=== PATIENT | male | born 1955 | race Two or more races ===

== ENCOUNTER 2024-02-28 09:18 | Inpatient (IN) | payer MEDICARE, MEDICAID ==
[~2024-02-28] VITALS: Ht 193 cm; Wt 68.7 kg
--- NOTE | 2024-02-28 10:30 | ED.PDOC ---
HPI Comments 68y M who presents to the ED via EMS for chief complaint of palpitations. Pt states he has been having palpitations since this AM. Pt has associated dizzziness and states it did not go away and he called EMS to the scene. Pt otherwise denies chest pain, shortness of breath, headache, fever, cough, chills, nausea or vomiting. Pt states he is daily smoker and endorses marijuana use. Pt denies any sick contacts. Pt is poor historian and has unknown medical history. Pt in the ED, has stable vitals in the ED. Chief Complaint: Palpitations Time Seen by MD: :27 Reviewed Notes: Arc Cutter Plasma Arc Notes Allergies: Coded Allergies: NO KNOWN ALLERGIES (Unverified , 02/28/24) Information Source: Patient Mode of Arrival: EMS Brought in by: EMS Past Medical History PAST MEDICAL HISTORY: Unknown Surgical History: Unknown Family History Family History: Unknown Social History Smoker: Cigarettes Alcohol: Denies ETOH Use Drugs: Marijuana Lives In: Home Constitutional: denies: chills, diaphoresis, fatigue, fever, malaise, sweats, weakness, others EENTM: denies: blurred vision, double vision, ear bleeding, ear discharge, ear drainage, ear pain, ear ringing, eye pain, eye redness, hearing loss, mouth pain, mouth swelling, nasal discharge, nose bleeding, nose congestion, nose pain, photophobia, tearing, throat pain, throat swelling, voice changes, others Respiratory: denies: cough, hemoptysis, orthopnea, SOB at rest, shortness of breath, SOB with excertion, stridor, wheezing, others Cardiovascular: reports: palpitations; denies: chest pain, dizzy spells, diaphoresis, Dyspnea on exertion, edema, irregular heart beat, left arm pain, lightheadedness, PND, syncope, others Gastrointestinal: denies: abdomen distended, abdominal pain, blood streaked bowels, constipated, diarrhea, dysphagia, difficulty swallowing, hematemesis, melena, nausea, poor appetite, poor fluid intake, rectal bleeding, rectal pain, vomiting, others Genitourinary: denies: burning, dysuria, flank pain, frequency, hematuria, incontinence, penile discharge, penile sore, pain, testicle pain, testicle swelling, urgency, others Neurological: reports: dizziness; denies: fainting, headache, left sided numbness, left sided weakness, numbness, paresthesia, pre-existing deficit, right sided numbness, right sided weakness, seizure, speech problems, tingling, tremors, weakness, others Musculoskeletal: denies: back pain, gout, joint pain, joint swelling, muscle pain, muscle stiffness, neck pain, others Integumetry: denies: bruises, change in color, change in hair/nails, dryness, laceration, lesions, lumps, rash, wounds, others Allergic/Immunocompromised: denies: Difficulty Healing, Frequent Infections, Hives, Itching, others Hematologic/Lymphatic: denies: anemia, blood clots, easy bleeding, easy bruising, swollen glands, others Endocrine: denies: excessive hunger, excessive sweating, excessive thirst, excessive urination, flushing, intolerance to cold, intolerance to heat, unexplained weight gain, unexplained weight loss, others Psychiatric: denies: anxiety, bipolar disorder, depression, hopeless, panic disorder, schizophrenia, sleepless, suicidal, others All Other Systems: Reviewed and Negative Physical Exam General Appearance: No Apparent Distress, Normal HEENT: Normal ENT Inspection, Pharynx Normal, TMs Normal Neck: Full Range of Motion, Non-Tender, Normal, Normal Inspection Respiratory: Other (lungs clear) Cardiovascular: Other (normal exam, ) Breast Exam: Deferred Gastrointestinal: No Organomegaly, Non Tender, No Pulsatile Mass, Normal Bowel Sounds, Soft Genitalia: Deferred Pelvic: Deferred Rectal: Deferred Extremities: No calf tenderness, Normal capillary refill, Normal inspection, Normal range of motion, Non-tender, No pedal edema Musculoskeletal : Apperance: Normal Neurologic: Alert, green building engineer II-XII nml as Tested, No Motor Deficits, Normal Affect, Normal Mood, No Sensory Deficits Cerebellar Function: Normal Reflexes: Normal Skin: Dry, Normal Color, Warm Lymphatic: No Adenopathy Was a procedure done? Was a procedure done?: No CP Differential Dx Differential Diagnosis: A-fib, A-Flutter, Angina, Anxiety / Panic Attack, Atrial Dysrhythmia, AV Block 1st Degree, AV Block 2nd Degree, AV Block 3rd Degree, Electrolyte Disorder, Heart Failure, Hyperthyroidism, Hyperventilation, Hypoxia, MAT, NC, PAC's, PSVT, PVC's, Sinus Tachycardia, Torsades De Pointes, Ventricular Dysrhythmia, V-Fib, V-Tach, WPW Differential Diagnosis: HTN Essential, HTN Accelerated Differential Diagnosis: Chest Wall Pain, Costochondritis X-Ray, Labs, Meds, VS Vital Signs Date Time Temp Pulse Resp B/P (MAP) Pulse Ox O2 Delivery O2 Flow Rate FiO2 02/28/24 14:19 63 19 118/54 (75) 95 02/28/24 14:19 63 19 95 Room Air 02/28/24 12:08 98.6 64 16 96/45 (62) 96 98.6 02/28/24 12:08 64 16 96 Room Air 02/28/24 09:18 75 02/28/24 09:18 98.0 80 24 100/65 (77) 100 Lab Test 02/28/24 13:42 02/28/24 12:40 Range/Units Troponin I High Sensitivity 46 48 </=54 ng/L White Blood Count 7.1 4.4-10.8 10^3/uL Red Blood Count 4.35 L 4.5-5.90 10^6/uL Hemoglobin 13.9 13.5-17.5 g/dL Hematocrit 40.8 L 41.0-53.0 % Mean Corpuscular Volume 93.7 80.0-100.0 fL Mean Corpuscular Hemoglobin 32.0 28.0-32.0 pg Mean Corpuscular Hemoglobin Concent 34.1 32.0-36.0 g/dL Red Cell Distribution Width 13.4 11.8-14.3 % Platelet Count 134 L 140-450 10^3/uL Mean Platelet Volume 7.4 6.9-10.8 fL Neutrophils (%) (Auto) 79.2 37.0-80.0 % Lymphocytes (%) (Auto) 11.7 10.0-50.0 % Monocytes (%) (Auto) 9.0 0.0-12.0 % Eosinophils (%) (Auto) 0.0 0.0-7.0 % Basophils (%) (Auto) 0.1 0.0-2.0 % Neutrophils # (Auto) 5.6 1.6-8.6 10 ^3/uL Lymphocytes # (Auto) 0.8 0.4-5.4 10 ^3/uL Monocytes # (Auto) 0.6 0-1.3 10 ^3/uL Eosinophils # (Auto) 0 0-0.8 10 ^3/uL Basophils # (Auto) 0 0-0.2 10 ^3/uL Nucleated Red Blood Cells 0.1 % Sodium Level 138 136-145 mmol/L Potassium Level 3.1 L 3.5-5.1 mmol/L Chloride Level 103 98-107 mmol/L Carbon Dioxide Level 27 20-31 mmol/L Anion Gap 8 5-15 Blood Urea Nitrogen 16 9-23 mg/dL Creatinine 0.93 0.700-1.30 mg/dL Glomerular Filtration Rate Calc 89 >90 mL/min BUN/Creatinine Ratio 17.2 10.0-20.0 Serum Glucose 91 74-106 mg/dL Calcium Level 9.5 8.7-10.4 mg/dL Current Medications Medications (Trade) Dose Ordered Sig/Jaswant Route Start Time Stop Time Status Last Admin Sodium Chloride 1,000 ml @ 250 mls/hr Q4H ONCE IV 02/28/24 12:15 02/28/24 16:14 02/28/24 12:32 Time of 1ST Reevaluation: 11:00 Reevaluation 1ST: Unchanged Time of 2ND Reevaluation: 15:29 Reevaluation 2ND: Improved Patient Education/Counseling: Diagnosis, Treatment, Prognosis, Need For Follow Up Family Education/Counseling: No Family Present Additional Information - I reviewed the following notes from patient's past medical encounters: - The following tests were ordered, and results were reviewed by me: (Labs, X- Ray, EKG): EKG x 3 - Additional information was gathered from interviewing the following inde pendent Historian: (Other Providers, EMT): - I reviewed and agreed with the following test results read by other provider: (X-ray, CT, US): - I discussed treatments and results with medical personnel pt has not had palpitations, but his BP did transiently drop, and responded to small fluid bolus. he will need admission for further monitoring and workups Departure 1 Departure Time of Disposition: 15:30 Impression: Primary Impression: Palpitations Additional Impression: Transient hypotension Disposition: ADMITTED INPATIENT Admit to: Tele Condition: Stable Discharged With: Self Critical Care Note Critical Care Time?: Yes (55 min-critical care time only) Critical care comment: due to concerns for patient's condition deterioration, the care required my highest attention and readiness to intervene. i spoke to the family, patient, reviewed any records, ordered the appropriate tests and treatments, reviewed the results, response and communicated with medical personnel, formulated a plan of care. critical care time does not include any procedures Stability Stability form required: No Heart Score Heart Score: Heart Score Response (Comments) Value History Slightly Suspicious 0 EKG Repolarization Disturb 1 Age >65 2 Risk Factors No known risk factors 0 Troponin Normal limit 0 Total 3 I personally scribed for DANILO MEDINA MD ([email or web address]) on 02/28/24 at 10:30. Electronically submitted by Hermilo Harmon ([email or web address]). DANILO MEDINA MD Feb 28, 2024 10:30
[2024-02-28] MEDS: SODIUM CHLORIDE 0.9% 1,000 ML IV ONE (12:32)
--- NOTE | 2024-02-28 12:47 | DVH ---
EXAM: XY CHEST PORTABLE Indication: palpitations Technique: Single frontal view of the chest was obtained Comparison: None FINDINGS: Lines and Tubes: None Lungs: No focal consolidation. Pleura: No effusion. No pneumothorax. Cardiomediastinal contours: Unremarkable Bones: No acute osseous abnormality. IMPRESSION: No acute cardiopulmonary disease.
[2024-02-28 13:23] LABS: Basophils # (auto) 0 10 ^3/uL (0-0.2); Basophils % (auto) 0.1 % (0.0-2.0); Eosinophils # (auto) 0 10 ^3/uL (0-0.8); Hematocrit 40.8 % (41.0-53.0); Hemoglobin 13.9 g/dL (13.5-17.5); Lymphocytes # (auto) 0.8 10 ^3/uL (0.4-5.4); Lymphocytes % (auto) 11.7 % (10.0-50.0); Mean Corpuscular Hgb Conc. 34.1 g/dL (32.0-36.0); Mean Corpuscular Volume 93.7 fL (80.0-100.0); Monocytes # (auto) 0.6 10 ^3/uL (0-1.3); Neutrophils # (auto) 5.6 10 ^3/uL (1.6-8.6); Neutrophils % (auto) 79.2 % (37.0-80.0); Nucleated Red Blood Cells % 0.1 %; Platelet Count (auto) 134 10^3/uL (140-450); Red Blood Cells 4.35 10^6/uL (4.5-5.90); Red Cell Distribution Width 13.4 % (11.8-14.3); White Blood Cell 7.1 10^3/uL (4.4-10.8)
[2024-02-28 13:56] LABS: Chloride 103 mmol/L (98-107); Sodium 138 mmol/L (136-145)
[2024-02-28 13:57] LABS: Anion Gap 8 (5-15); Carbon Dioxide 27 mmol/L (20-31)
[2024-02-28 13:58] LABS: Calcium 9.5 mg/dL (8.7-10.4)
[2024-02-28 14:02] LABS: BUN/Creatinine Ratio 17.2 (10.0-20.0); Blood Urea Nitrogen 16 mg/dL (9-23); Glucose 91 mg/dL (74-106)
[2024-02-28 14:05] LABS: Potassium 3.1 mmol/L (3.5-5.1)
[2024-02-28] MEDS: POTASSIUM CHL 20 Meq TABLET PO ONE (16:14)
[2024-02-28] MEDS ORDERED: MORPHINE SULFATE INJ 2 MG/ml SYRG IV PRN (16:15)
[2024-02-28] MEDS ORDERED: NITROGLYCERIN 0.4 MG SL TAB SL PRN (16:15)
[2024-02-28 16:51] LABS: Urine Bacteria None Seen /hpf (None Seen)
[2024-02-28 17:09] LABS: Urine Blood TRACE /uL (Negative); Urine Clarity Turbid (Clear); Urine Color Yellow (Yellow); Urine Mucus MODERATE (None Seen); Urine Protein, UAD 1+ (Negative); Urine Specific Gravity 1.031 (1.001-1.035); Urine Squamous Epithelial Cell FEW /hpf (<5); Urine Urobilinogen 8 mg/dL (Negative); Urine WBC 7 /hpf (0 - 3)
[2024-02-28 17:14] LABS: Amphetamine Screen, Urine Neg (NEGATIVE); Barbiturate Scree,Urine Neg (NEGATIVE); Benzodiazephine Screen, Urine Neg (NEGATIVE); Cannabinoid Screen, Urine Pos (NEGATIVE); Cocaine Screen, Urine Neg (NEGATIVE); Opiate Scree,Urine Neg (NEGATIVE); Phencyclidine Screen, Urine Neg (NEGATIVE)
[2024-02-28 17:33] LABS: Alanine Aminotransferase 23 U/L (7-40); Alkaline Phosphatase 69 U/L (46-116); Anion Gap 6 (5-15); Aspartate Aminotransferase 23 U/L (13-40); BUN/Creatinine Ratio 16.5 (10.0-20.0); Bilirubin, Total 0.9 mg/dL (0.2-1.0); Blood Urea Nitrogen 16 mg/dL (9-23); Calcium 9.3 mg/dL (8.7-10.4); Carbon Dioxide 27 mmol/L (20-31); Chloride 106 mmol/L (98-107); Sodium 139 mmol/L (136-145); Total Protein 6.4 g/dL (5.7-8.2)
[2024-02-28] MEDS ORDERED: TAMS0.4C39 PO (17:45)
[2024-02-28] MEDS ORDERED: ATOR20TA50 PO (17:45)
[2024-02-28] MEDS ORDERED: GABA-1250 PO (17:45)
[2024-02-28] MEDS ORDERED: DULO1CAP5 PO (17:45)
[2024-02-28] MEDS ORDERED: PANT40T (17:45)
[2024-02-28] MEDS ORDERED: ASPI-325 PO (17:45)
[2024-02-28] MEDS ORDERED: ERGO1CAP12 PO (17:45)
[2024-02-28] MEDS ORDERED: ERGOCALCIFEROL 50,000 UNIT(1.25MG) CAP PO SCH (18:00)
--- NOTE | 2024-02-28 18:00 | DVHHPRES ---
History of Present Illness Resident Creating Document: YAMILA GIRON RESIDENT History of Present Illness Mr. Reynoso, 68-year-old male presented to the ED via EMS with a chief complaint of palpitations that began this morning, accompanied by dizziness. He denies chest pain, shortness of breath, headache, fever, cough, chills, nausea, or vomiting. He is a daily smoker and uses marijuana. He denies any sick contacts and has an unknown medical history. In the ED, his vitals are stable. He has no known allergies, and the information was provided by the patient himself. Cardiovascular: HTN GI: GERD Past Surgical History: None Family History non-contributory Smoke: 1 pack per day ALCOHOL: occassional Drugs: Marijuana Lives: with Family Domestic Violence: Neg Review of Systems Constitutional: No: Fever, Chills, Sweats, Weakness, Malaise, Other Eyes: No: Pain, Vision change, Conjunctivae inflammation, Eyelid inflammation, Other, Redness ENT: No: Ear pain, Ear discharge, Nose pain, Nose discharge, Nose congestion, Mouth pain, Mouth swelling, Throat pain, Throat swelling, Other Respiratory: No: Cough, Dry, Shortness of breath, SOB with excertion, Wheezing, Hemoptysis, Pleuritic Pain, Sputum, Wheezing, Other Cardiovascular: Palpitations, Lt Headedness; No: Chest Pain, Orthopnea, Paroxysmal Noc. Dyspnea, Edema, Other Gastrointestinal: No: Nausea, Vomiting, Abdominal Pain, Diarrhea, Constipation, Melena, Hematochezia, Other Genitourinary: No Dysuria, No Frequency, No Incontinence, No Hematuria, No Retention, No Other Musculoskeletal: No: other, neck pain, shoulder pain, arm pain, back pain, hand pain, leg pain, foot pain Skin: No: Rash, Lesions, Jaundice, Bruising, Other Neurological: No: Weakness, Numbness, Incoordination, Change in speech, Confusion, Seizures, Other Allergies: Coded Allergies: NO KNOWN ALLERGIES (Unverified , 02/28/24) Medications Current Medications Medications Dose Ordered Sig/Jaswant Route Start Time Stop Time Status Last Admin Dose Admin Nitroglycerin 0.4 mg Q5MINP PRN SL 02/28/24 16:15 Morphine Sulfate 2 mg Q30M PRN IV 02/28/24 16:15 Lactated Ringer's 1,000 ml @ 50 mls/hr Q20H IV 02/28/24 17:45 UNV Aspirin 81 mg DAILY PO 02/29/24 10:00 UNV Atorvastatin Calcium 20 mg DAILY PO 02/29/24 10:00 UNV Duloxetine HCl 300 mg DAILY PO 02/29/24 10:00 UNV Ergocalciferol 50,000 unit QWEEKLY PO 02/28/24 18:00 UNV Gabapentin 300 mg DAILY PO 02/29/24 14:00 UNV Pantoprazole Sodium 40 mg DAILY PO 02/29/24 10:00 UNV Tamsulosin HCl 0.4 mg DAILY PO 02/29/24 10:00 UNV Exam Vital Signs Vital Signs Date Time Temp Pulse Resp B/P (MAP) Pulse Ox O2 Delivery O2 Flow Rate FiO2 02/28/24 16:06 98.0 66 20 107/63 (78) 99 98.0 02/28/24 14:19 Room Air General Appearance: Alert, Oriented X3, Cooperative, No acute distress HEENT: Atraumatic, PERRLA, EOMI, Mucous membr. moist/pink Respiratory: Clear to auscultation, Normal air movement Cardiovascular: Regular rate, Normal S1, Normal S2, No murmurs Abdominal: Normal bowel sounds, Soft, No tenderness, No hepatospenomegaly Extremities: No clubbing, No cyanosis, No edema, Normal pulses, No tenderness/swelling Skin: No rashes, No breakdown, No significant lesion Neuro: Normal gait, Normal speech, Strength at 5/5 X4 ext, Normal tone, Sensation intact, Cranial nerves 3-12 NL, Reflexes 2+ Psych/Mental Status: Mental status NL, Mood NL Labs/Xrays Labs Test 02/28/24 16:27 02/28/24 15:38 02/28/24 12:40 Range/Units Urine Color Yellow Yellow Urine Clarity Turbid H Clear Urine pH 6.0 5.0-9.0 Urine Specific [place] 1.031 1.001-1.035 Urine Protein 1+ H Negative Urine Ketones 1+ H Negative Urine Blood Trace H Negative /uL Urine Nitrite Negative Negative Urine Bilirubin 1+ Negative Urine Urobilinogen 8 H Negative mg/dL Urine Leukocyte Esterase Negative Negative /uL Urine RBC 15 0 - 3 /hpf Urine WBC 7 0 - 3 /hpf Urine Squamous Epithelial Cells Few <5 /hpf Urine Bacteria None seen None Seen /hpf Urine Mucus Moderate None Seen Urine Glucose Trace Normal mg/dL Urine Opiates Screen Neg NEGATIVE Urine Fentanyl Screen Neg NEGATIVE Urine Barbiturates Screen Neg NEGATIVE Urine Phencyclidine Screen Neg NEGATIVE Urine Amphetamines Screen Neg NEGATIVE Urine Benzodiazepines Screen Neg NEGATIVE Urine Cocaine Screen Neg NEGATIVE Urine Cannabinoids Screen Pos NEGATIVE Troponin I High Sensitivity 47 </=54 ng/L White Blood Count 7.1 4.4-10.8 10^3/uL Red Blood Count 4.35 L 4.5-5.90 10^6/uL Hemoglobin 13.9 13.5-17.5 g/dL Hematocrit 40.8 L 41.0-53.0 % Mean Corpuscular Volume 93.7 80.0-100.0 fL Mean Corpuscular Hemoglobin 32.0 28.0-32.0 pg Mean Corpuscular Hemoglobin Concent 34.1 32.0-36.0 g/dL Red Cell Distribution Width 13.4 11.8-14.3 % Platelet Count 134 L 140-450 10^3/uL Mean Platelet Volume 7.4 6.9-10.8 fL Neutrophils (%) (Auto) 79.2 37.0-80.0 % Lymphocytes (%) (Auto) 11.7 10.0-50.0 % Monocytes (%) (Auto) 9.0 0.0-12.0 % Eosinophils (%) (Auto) 0.0 0.0-7.0 % Basophils (%) (Auto) 0.1 0.0-2.0 % Neutrophils # (Auto) 5.6 1.6-8.6 10 ^3/uL Lymphocytes # (Auto) 0.8 0.4-5.4 10 ^3/uL Monocytes # (Auto) 0.6 0-1.3 10 ^3/uL Eosinophils # (Auto) 0 0-0.8 10 ^3/uL Basophils # (Auto) 0 0-0.2 10 ^3/uL Nucleated Red Blood Cells 0.1 % [address] [address] Ph: [phone] DIAGNOSTIC IMAGING Diagnostic Imaging Report : [id number] Signed PATIENT: TRISTIAN REYNOSO ACCT: [id number] UNIT: [id number] : 1955 LOC: ER ROOM / BED: / AGE / SEX: 68 / M ADM STATUS: REG ER SERVICE 18 ORDERING PHYSICIAN: DANILO MEDINA MD PROCEDURE(s): CXRP - CHEST PORTABLE REASON: palpitations ORDER NUMBER(s): [id number], ACCESSION NUMBER(s): [id number] EXAM: XY CHEST PORTABLE Indication: palpitations Technique: Single frontal view of the chest was obtained Comparison: None FINDINGS: Lines and Tubes: None Lungs: No focal consolidation. Pleura: No effusion. No pneumothorax. Cardiomediastinal contours: Unremarkable Bones: No acute osseous abnormality. IMPRESSION: No acute cardiopulmonary disease. ATED BY: VENUS BUITRAGO MD DICTATED DATE/TIME: 02/28/241245 SIGNED BY: VENUS BUITRAGO MD SIGNED DATE/TIME: 02/28/241245 CC: Assessment/Plan Assessment/Plan Assessment: 68-year-old gentleman with a past medical history significant for essential hypertension, GERD, benign prostatic hyperplasia, dyslipidemia, CAD risk, vitamin D deficiency, back pain, and osteoarthritis. Noticed sustained palpitation this morning, associated with dizziness and recovered without further intervention. Otherwise, the patient denies chest pain, shortness of breath, headache, fever, cough, chills, nausea, vomiting, or other systemic symptoms. The patient came to the ED with EMS for further evaluations. Plan: #Palpitations, rule out arrythmia: Isolated episodes, brought differentials including structural heart disease, rhythm disorder, autonomic dysfunction, medication side effect, dehydration among others. Pending extensive lab work, TTE/echo, keep the patient on telemetry overnight. If any reasonable cause noted, we will treat. Otherwise, we will advise outpatient follow-up closely with Cardiology and event monitoring to catch the culprit rhythm. #ACS to rule out: EKG, trops. #Unstable/stable angina to rule out #Chronic marijuana abuse: UDS positive for cannabinoids, counseling done for adverse effects of chronic marijuana abuse. #Essential hypertension: Blood pressure goal 140/90 or below as per AHA/ACC guidelines for nondiabetic adults. #Hypokalemia: Mild 3.1 status post replenishment, check tomorrow. #Benign prostatic hyperplasia: Tamsulosin 0.4 to continue. #GERD: Continue pantoprazole 20 mg daily oral. #Dyslipidemia: Continue atorvastatin 20mg daily #Previous history of UTI: Previously on nitrofurantoin, even for urinalysis unremarkable, patient is free of any urinary symptoms. #Prior history of CAD: Aspirin 81, and atorvastatin to continue. #Vitamin D deficiency: Continue vitamin D supplements. #Back pain: Duloxetine 30 mg capsule daily, gabapentin 300 a.m., 300 lines, 600 p.m. #Mild thrombocytopenia 134: Avoid aspirin, avoid Lovenox. Trend. SCDs #Transient hypokalemia: Likely due to dehydration, check for orthostatic hypotension, continue IV fluid, continue diet and further treatment. #Likely costochondritis: Mild chest wall tenderness: as needed Tylenol. #Active smoker: Smoking cessation counseling done for 11 minutes. #PUD prophylaxis: Protonix, home dose to continue. DVT prophylaxis:SCD/brisk movement. Barriers to discharge: Medical diagnosis and management in progress. PCP: Cordelia Carrillo. Specialist relevant to admission: Cardiology outpatient follow-up if the patient has persistent symptoms for event monitoring device. Case discussed with Dr. Veloz. Code Status: Full Code. Discussion needed total 29 minutes bedside. The patient remains on the telemetry floor. Plan discussed with: Patient, Other (RN, Primary Team. ) My Orders Orders - YAMILA GIRON RESIDENT Procedure Category Date Status Time Admit ADMIT 02/28/24 Transmitted 16:04 Nitroglycerin PHA 02/28/24 In Process Sublingual (Ntrostat 16:15 Morphine Sulfate PHA 02/28/24 In Process Injection 16:15 Oxygen By Nasal RT 02/28/24 Transmitted Cannula 16:04 Stat Ekg For Chest [facility] 02/28/24 In Process Pain 16:04 Notify Md Of Changes [facility] 02/28/24 In Process From Base 16:04 Advice Line Rn For [facility] 02/28/24 In Process 24 Hours 16:04 Emergency Dysrhythmia [facility] 02/28/24 In Process Protocol 16:04 Rhythm Strips Once [facility] 02/28/24 In Process Every Shift 16:04 Thyroid Stimulating LAB 02/28/24 In Process Hormone 16:05 D-Dimer LAB 02/28/24 In Process 16:05 Electrocardigram EKG 02/28/24 Logged 16:05 Comprehensive LAB 02/28/24 In Process Metabolic Panel 16:05 Comprehensive LAB 02/29/24 Verified Metabolic Panel 04:00 Complete Blood Count LAB 02/29/24 Verified 04:00 Echo 2d Mode Cardiac US 02/28/24 Logged DOP 16:05 Orthostatic Vital ORDERS 02/28/24 Transmitted Signs 17:22 Lactated Ringer's PHA 02/28/24 Logged 17:45 Aspirin Enteric PHA 02/29/24 Logged Coated Tablet 10:00 Atorvastatin (Lipitor) PHA 02/29/24 Logged 10:00 Duloxetine Hcl PHA 02/29/24 Logged Capsule (Cymbalta 10:00 Ergocalciferol PHA 02/28/24 Logged (Vitamin D 50,000 18:00 Gabapentin Capsule PHA 02/29/24 Logged (Neurontin Capsule) 14:00 Pantoprazole Tablet PHA 02/29/24 Logged (Protonix Tablet) 10:00 Tamsulosin PHA 02/29/24 Logged Hydrochloride (Flomax) 10:00 Date of Service: Feb 28, 2024 Billing Provider: TANO DE MD Common Visit Codes: [id number] INP/OBS CARE (HIGH) Secondary Visit Codes: [id number] CHNG SMOKING >10MIN YAMILA GIRON RESIDENT Feb 28, 2024 18:00 TANO DE MD Feb 29, 2024 09:07
[2024-02-28 18:07] LABS: Glucose 146 mg/dL (74-106)
--- NOTE | 2024-02-28 18:47 | DVH ---
Bilateral lower extremity venous duplex Clinical History: Palpitations. Comparison: None Technique: Duplex Doppler evaluation of the deep venous systems of both lower extremities from the common femora l veins to the popliteal veins including color Doppler and spectral/pulsed waveform analysis was perf ormed. Findings: RIGHT SIDE: The common femoral vein demonstrates appropriate compressibility and waveform variability. There is compressibility/patency of the great saphenous vein at the proximal thigh. The femoral vein demonstrates appropriate compressibility and waveform variability. The deep femoral vein demonstrates appropriate compressibility and waveform variability. The popliteal vein demonstrates appropriate compressibility and waveform variability. There is normal compressibility at the tibioperoneal trunk. LEFT SIDE: The common femoral vein demonstrates appropriate compressibility and waveform variability. There is compressibility/patency of the great saphenous vein at the proximal thigh. The femoral vein demonstrates appropriate compressibility and waveform variability. The deep femoral vein demonstrates appropriate compressibility and waveform variability. The popliteal vein demonstrates appropriate compressibility and waveform variability. There is normal compressibility at the tibioperoneal trunk. Impression: 1. No right or left femoropopliteal venous thrombosis.
[2024-02-28 18:50] VITALS: PULSE 70; RESP 15; O2SAT 93
[2024-02-28] MEDS: POTASSIUM EFFERVESENT TAB 25 MEQ PO ONE (19:07)
[2024-02-28] MEDS: LACTATED RINGER'S 1,000 ML IV SCH (19:25)
[2024-02-28 20:18] VITALS: BP 118/56; PULSE 75; RESP 18; TEMP 98.2; O2SAT 95
[2024-02-28 21:11] VITALS: BP 116/62; PULSE 75; RESP 18; TEMP 98.2; O2SAT 95
[2024-02-28] MEDS: TAMSULOSIN HYDROCHLORIDE 0.4 MG CAP PO SCH (23:46)
[2024-02-28] MEDS: ATORVASTATIN 20 MG TAB PO SCH (23:47)
[2024-02-28] MEDS: GABAPENTIN 300 MG CAP PO SCH (23:47)
[2024-02-29] VITALS (10 sets, daily range): BP systolic 94–111; BP diastolic 43–66; PULSE 51–70; RESP 16–19; TEMP 36.4; O2SAT 91–98
[2024-02-29 05:21] LABS: Basophils # (auto) 0 10 ^3/uL (0-0.2); Basophils % (auto) 0.1 % (0.0-2.0); Eosinophils # (auto) 0 10 ^3/uL (0-0.8); Hematocrit 37.1 % (41.0-53.0); Hemoglobin 12.9 g/dL (13.5-17.5); Lymphocytes # (auto) 0.9 10 ^3/uL (0.4-5.4); Lymphocytes % (auto) 11.8 % (10.0-50.0); Mean Corpuscular Hemoglobin 32.4 pg (28.0-32.0); Mean Corpuscular Hgb Conc. 34.7 g/dL (32.0-36.0); Mean Corpuscular Volume 93.5 fL (80.0-100.0); Monocytes # (auto) 0.8 10 ^3/uL (0-1.3); Monocytes % (auto) 9.6 % (0.0-12.0); Neutrophils # (auto) 6.2 10 ^3/uL (1.6-8.6); Neutrophils % (auto) 78.5 % (37.0-80.0); Nucleated Red Blood Cells % 0.1 %; Platelet Count (auto) 127 10^3/uL (140-450); Red Blood Cells 3.97 10^6/uL (4.5-5.90); Red Cell Distribution Width 13.4 % (11.8-14.3); White Blood Cell 7.9 10^3/uL (4.4-10.8)
[2024-02-29] MEDS: ACETAMINOPHEN 325 MG TAB PO PRN (05:22)
[2024-02-29 05:38] LABS: Alanine Aminotransferase 19 U/L (7-40); Albumin 3.9 g/dL (3.2-4.8); Alkaline Phosphatase 71 U/L (46-116); Anion Gap 5 (5-15); BUN/Creatinine Ratio 16.5 (10.0-20.0); Blood Urea Nitrogen 13 mg/dL (9-23); Calcium 9.3 mg/dL (8.7-10.4); Carbon Dioxide 29 mmol/L (20-31); Chloride 105 mmol/L (98-107); Glucose 94 mg/dL (74-106); Potassium 3.8 mmol/L (3.5-5.1); Sodium 139 mmol/L (136-145)
[2024-02-29 05:39] LABS: Bilirubin, Total 1.1 mg/dL (0.2-1.0); Total Protein 6.1 g/dL (5.7-8.2)
[2024-02-29 06:06] LABS: Aspartate Aminotransferase 19 U/L (13-40)
[2024-02-29] MEDS: ASPirin-EC 81 mg tab PO SCH (08:30)
[2024-02-29] MEDS: PANTOPRAZOLE 40 MG TAB PO SCH (08:31)
[2024-02-29] MEDS: DULoxetine HCL 30 MG CAP PO SCH (08:31)
[2024-02-29] MEDS ORDERED: ATORVASTATIN 20 MG TAB PO SCH (10:00)
[2024-02-29] MEDS ORDERED: TAMSULOSIN HYDROCHLORIDE 0.4 MG CAP PO SCH (10:00)
--- NOTE | 2024-02-29 13:19 | DVHPNRES ---
Progress Note Date Seen: Feb 29, 2024 Resident Creating Document: YAMILA GIRON RESIDENT Subjective Review of Systems overnight patient remains hemodynamically stable, hypothermic, resting heart rate remains 51/56, blood pressure on the lower side. But remains map over 65. Breathing comfortably in the room , hypokalemia improved otherwise all labs unremarkable, ketone positive, pending echo Objective vital signs Vital Sign Date Time Temp Pulse Resp B/P (MAP) Pulse Ox O2 Delivery O2 Flow Rate FiO2 02/29/24 12:48 98.2 56 16 104/66 (79) 92 98.2 02/29/24 08:00 Room Air* 0 21 Total Intake and Output 02/28/24 02/28/24 02/29/24 15:00 23:00 07:00 Intake Total 600 ml Output Total 200 ml Balance 400 ml medications Current Medications Medications Dose Ordered Sig/Jaswant Route Start Time Stop Time Status Last Admin Dose Admin Nitroglycerin 0.4 mg Q5MINP PRN SL 02/28/24 16:15 Morphine Sulfate 2 mg Q30M PRN IV 02/28/24 16:15 Lactated Ringer's 1,000 ml @ 50 mls/hr Q20H IV 02/28/24 17:45 02/28/24 19:25 50 MLS/HR Aspirin 81 mg DAILY PO 02/29/24 10:00 02/29/24 08:30 81 MG Duloxetine HCl 30 mg DAILY PO 02/29/24 10:00 02/29/24 08:31 30 MG Ergocalciferol 50,000 unit QWEEKLY PO 02/28/24 18:00 Pantoprazole Sodium 40 mg DAILY PO 02/29/24 10:00 02/29/24 08:31 40 MG Atorvastatin Calcium 20 mg HS PO 02/28/24 22:30 02/28/24 23:47 20 MG Gabapentin 300 mg TID PO 02/28/24 22:30 02/29/24 05:22 300 MG Tamsulosin HCl 0.4 mg HS PO 02/28/24 22:30 02/28/24 23:46 0.4 MG Acetaminophen 650 mg Q6HP PRN PO 02/29/24 04:15 02/29/24 05:22 650 MG Examination Assessment/Plan Assessment: 68-year-old gentleman with a past medical history significant for essential hypertension, GERD, benign prostatic hyperplasia, dyslipidemia, CAD risk, vitamin D deficiency, back pain, and osteoarthritis. Noticed sustained palpitation this morning, associated with dizziness and recovered without further intervention. Otherwise, the patient denies chest pain, shortness of breath, headache, fever, cough, chills, nausea, vomiting, or other systemic symptoms. The patient came to the ED with EMS for further evaluations. Plan: #Palpitations, rule out arrythmia: Isolated episodes, brought differentials including structural heart disease, rhythm disorder, autonomic dysfunction, medication side effect, dehydration among others. Pending extensive lab work, TTE/echo, keep the patient on telemetry overnight. If any reasonable cause noted, we will treat. Otherwise, we will advise outpatient follow-up closely with Cardiology and event monitoring to catch the culprit rhythm. #ACS to rule out: EKG, trops. #Unstable/stable angina to rule out #Chronic marijuana abuse: UDS positive for cannabinoids, counseling done for adverse effects of chronic marijuana abuse. #Essential hypertension: Blood pressure goal 140/90 or below as per AHA/ACC guidelines for nondiabetic adults. #Hypokalemia: Mild 3.1 status post replenishment, check tomorrow. #Benign prostatic hyperplasia: Tamsulosin 0.4 to continue. #GERD: Continue pantoprazole 20 mg daily oral. #Dyslipidemia: Continue atorvastatin 20mg daily #Previous history of UTI: Previously on nitrofurantoin, even for urinalysis unremarkable, patient is free of any urinary symptoms. #Prior history of CAD: Aspirin 81, and atorvastatin to continue. #Vitamin D deficiency: Continue vitamin D supplements. #Back pain: Duloxetine 30 mg capsule daily, gabapentin 300 a.m., 300 lines, 600 p.m. #Mild thrombocytopenia 134: Avoid aspirin, avoid Lovenox. Trend. SCDs #Transient hypokalemia: Likely due to dehydration, check for orthostatic hypotension, continue IV fluid, continue diet and further treatment. #Likely costochondritis: Mild chest wall tenderness: as needed Tylenol. #Active smoker: Smoking cessation counseling done for 11 minutes. #PUD prophylaxis: Protonix, home dose to continue. DVT prophylaxis:SCD/brisk movement. Barriers to discharge: Medical diagnosis and management in progress. PCP: Cordelia Carrillo. Specialist relevant to admission: Cardiology outpatient follow-up if the patient has persistent symptoms for event monitoring device. Case discussed with Dr. Veloz. Code Status: Full Code. Discussion needed total 29 minutes bedside. The patient remains on the telemetry floor. laboratory and microbiology Laboratory Tests 02/29/24 04:38 Test 02/29/24 04:38 Range/Units Serum Glucose 94 74-106 mg/dL Labs and/or images reviewed: Labs reviewed by me, Image(s) reviewed by me My Orders My Orders Orders - YAMILA GIRON Procedure Category Date Status Time Admit ADMIT 02/28/24 Transmitted 16:04 Nitroglycerin PHA 02/28/24 In Process Sublingual (Ntrostat 16:15 Morphine Sulfate PHA 02/28/24 In Process Injection 16:15 Oxygen By Nasal RT 02/28/24 Transmitted Cannula 16:04 Stat Ekg For Chest CHAYO 02/28/24 In Process Pain 16:04 Notify Of Changes CHAYO 02/28/24 In Process From Base 16:04 [employer] For [facility] 02/28/24 In Process 24 Hours 16:04 Emergency Dysrhythmia [facility] 02/28/24 In Process Protocol 16:04 Rhythm Strips Once [facility] 02/28/24 In Process Every Shift 16:04 Electrocardigram EKG 02/28/24 Logged 16:05 Orthostatic Vital ORDERS 02/28/24 Transmitted Signs 17:22 Lactated Ringer's PHA 02/28/24 In Process 17:45 Aspirin Enteric PHA 02/29/24 In Process Coated Tablet 10:00 Duloxetine Hcl PHA 02/29/24 In Process Capsule (Cymbalta 10:00 Ergocalciferol PHA 02/28/24 In Process (Vitamin D 50,000 18:00 Pantoprazole Tablet PHA 02/29/24 In Process (Protonix Tablet) 10:00 Bilat Lower Dvt US 02/28/24 Resulted 18:09 Sequential CHAYO 02/28/24 In Process Compression Device 18:32 Troponin-I Hs LAB 02/29/24 Logged 13:46 Stat Ekg For Chest CHAYO 02/29/24 In Process Pain 10:46 YAMILA GIRON Feb 29, 2024 13:19
[2024-02-29] MEDS ORDERED: GABAPENTIN 300 MG CAP PO SCH (14:00)
--- NOTE | 2024-02-29 14:19 | DVHSR ---
APPROVED REPORT EXAM: Two-dimensional and M-mode echocardiogram with Doppler and color Doppler. Blood Pressure: 103/46 mmHg INDICATION Palpitations Structural Heart Disease RISK FACTORS Height: 6' 4", Weight: 151 DIMENSIONS LVDd5.0 (3.8-5.7cm)LA (2D)4.3 (1.9-4.0cm)Aortic Root3.8 (2.0-3.7cm) LVDs3.9 (2.5-4.0cm)LA (MM) (1.9-4.0cm)Aortic Cusp Exc1.8 (1.5-2.0cm) EF (%) 55.0 (55-70%)Rt. Atrium4.4 (1.9-4.0cm)Asc. Aorta cm IVSd1.0 (0.7-1.1cm)RV (D) (1.8-2.4cm) PWd0.9 (0.7-1.1cm) Mitral Valve MitralMitral Stenosis E wave0.80m/sMV Mean GR.mmHg A wave0.70m/sMV Peak GR.mmHg E/A ratio1.12D MVAcm2 Aortic Valve Aortic ValveAortic Stenosis V11.00m/Stevie Mean GR.3mmHg V21.00m/Stevie Peak GR.5mmHg LVOT Diameter2.1 (1.8-2.4cm)Doppler AVA3.46cm2 Pulmonic Valve V20.70m/s Tricuspid Valve TR Velocity2.50m/s [id number] Conclusion Technically good study. Sinus rhythm. Left atrial enlargement. Mild dilation of the sinuses of Valsalva. Valves are otherwise normal. EF of 50% with normal RV function. Dopplers unremarkable. Mild TR. No pericardial effusion masses or vegetations.
--- NOTE | 2024-02-29 17:42 | DVHDSRES ---
Discharge Summary Date of Admission Resident Creating Document: YAMILA GIRON RESIDENT Feb 28, 2024 at 16:04 Date of Discharge: Feb 29, 2024 Admitting Diagnosis Palliations. Labs/Diagnostic Data: Laboratory Results Test 02/29/24 13:45 02/29/24 04:38 02/28/24 21:23 02/28/24 16:27 Troponin I High Sensitivity 35 ng/L (</=54) White Blood Count 7.9 10^3/uL (4.4-10.8) Red Blood Count 3.97 10^6/uL (4.5-5.90) Hemoglobin 12.9 g/dL (13.5-17.5) Hematocrit 37.1 % (41.0-53.0) Mean Corpuscular Volume 93.5 fL (80.0-100.0) Mean Corpuscular Hemoglobin 32.4 pg (28.0-32.0) Mean Corpuscular Hemoglobin Concent 34.7 g/dL (32.0-36.0) Red Cell Distribution Width 13.4 % (11.8-14.3) Platelet Count 127 10^3/uL (140-450) Mean Platelet Volume 7.2 fL (6.9-10.8) Neutrophils (%) (Auto) 78.5 % (37.0-80.0) Lymphocytes (%) (Auto) 11.8 % (10.0-50.0) Monocytes (%) (Auto) 9.6 % (0.0-12.0) Eosinophils (%) (Auto) 0.0 % (0.0-7.0) Basophils (%) (Auto) 0.1 % (0.0-2.0) Neutrophils # (Auto) 6.2 10 ^3/uL (1.6-8.6) Lymphocytes # (Auto) 0.9 10 ^3/uL (0.4-5.4) Monocytes # (Auto) 0.8 10 ^3/uL (0-1.3) Eosinophils # (Auto) 0 10 ^3/uL (0-0.8) Basophils # (Auto) 0 10 ^3/uL (0-0.2) Nucleated Red Blood Cells 0.1 % Sodium Level 139 mmol/L (136-145) Potassium Level 3.8 mmol/L (3.5-5.1) Chloride Level 105 mmol/L (98-107) Carbon Dioxide Level 29 mmol/L (20-31) Anion Gap 5 (5-15) Blood Urea Nitrogen 13 mg/dL (9-23) Creatinine 0.79 mg/dL (0.700-1.30) Glomerular Filtration Rate Calc 96 mL/min (>90) BUN/Creatinine Ratio 16.5 (10.0-20.0) Serum Glucose 94 mg/dL (74-106) Calcium Level 9.3 mg/dL (8.7-10.4) Total Bilirubin 1.1 mg/dL (0.2-1.0) Aspartate Amino Transferase (AST) 19 U/L (13-40) Alanine Aminotransferase (ALT) 19 U/L (7-40) Alkaline Phosphatase 71 U/L (46-116) Total Protein 6.1 g/dL (5.7-8.2) Albumin 3.9 g/dL (3.2-4.8) Plasma/Serum Blood Alcohol < 3.0 mg/dL (<10) Urine Color Yellow (Yellow) Urine Clarity Turbid (Clear) Urine pH 6.0 (5.0-9.0) Urine Specific [place] 1.031 (1.001-1.035) Urine Protein 1+ (Negative) Urine Ketones 1+ (Negative) Urine Blood Trace /uL (Negative) Urine Nitrite Negative (Negative) Urine Bilirubin 1+ (Negative) Urine Urobilinogen 8 mg/dL (Negative) Urine Leukocyte Esterase Negative /uL (Negative) Urine RBC 15 /hpf (0 - 3) Urine WBC 7 /hpf (0 - 3) Urine Squamous Epithelial Cells Few /hpf (<5) Urine Bacteria None seen /hpf (None Seen) Urine Mucus Moderate (None Seen) Urine Glucose Trace mg/dL (Normal) Urine Opiates Screen Neg (NEGATIVE) Urine Fentanyl Screen Neg (NEGATIVE) Urine Barbiturates Screen Neg (NEGATIVE) Urine Phencyclidine Screen Neg (NEGATIVE) Urine Amphetamines Screen Neg (NEGATIVE) Urine Benzodiazepines Screen Neg (NEGATIVE) Urine Cocaine Screen Neg (NEGATIVE) Urine Cannabinoids Screen Pos (NEGATIVE) Test 02/28/24 15:38 D-Dimer, Quantitative 0.55 mg/L FEU (0.0-0.49) Thyroid Stimulating Hormone (TSH) 1.00 uIU/mL (0.55-4.78) Other Laboratory Tests 02/29/24 04:38 Brief Hx & Hospital Course: Hospitalization Summary: Mr. Reynoso, a 68-year-old man with a history of hypertension, GERD, BPH, dyslipidemia, CAD risk, vitamin D deficiency, back pain, and osteoarthritis experienced palpitations and dizziness but recovered without intervention; he remains hemodynamically stable with improved hypokalemia and unremarkable labs, echocardiogram grossly unremarkable, follow up EKG and telemetry grossly unremarkable seems like patient had intravascular volume depletion due to low p.o. intake starvation ketosis and reduced hydration. During hospitalization PE/ DVT ruled out, with treating chronic conditions along with IV hydration patient improved and did not have any recurrence of palpitation. Medical conditions treated in hospital: #Hypotension due to intravascular volume depletion needing IV hydration #Palpitations, likely supraventricular tachycardia # ruled out life threatening arrhythmias and event monitoring to catch the culprit rhythm. #ACS ruled out #Unstable/stable angina to rule out #Chronic marijuana abuse #Essential hypertension #Hypokalemia #Benign prostatic hyperplasia #GERD #Dyslipidemia #Previous history of UTI #Prior history of CAD #Vitamin D deficiency #Back pain #Mild thrombocytopenia, stable. #Transient hypokalemia #Likely costochondritis #Active smoker #PUD prophylaxis: Protonix, home dose to continue. #Low PO intake #DVT/PE ruled out #Starvation ketosis #orthostatic hypotension ruled out. #Mild tricuspid regurgitation #left atrial enlargement #mild Dilatation paraspinal sinuses of Valsalva, clinical significance undetermined #moderate malnutrition. Case discussed with Dr. Veloz Medications: Home medication to Continue. No changes done. Follow up: Patient is agreed to follow PCP in 1-2 weeks of discharge and specialists as needed. 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 Discharge clinic follow up needed. Discharge planning needed total 41 minutes of detailed discussion. The patient and caregiver team agreed to the plan. Consults/Reason for consult None Operations or Procedures [place] [address] Ph: [phone] DIAGNOSTIC IMAGING Diagnostic Imaging Report : [id number] Signed PATIENT: TRISTIAN REYNOSO ACCT: [id number] UNIT: [id number] : 1955 LOC: TELE ROOM / BED: [address] [place] [address] AGE / SEX: 68 / M ADM STATUS: ADM IN SERVICE 1809 ORDERING PHYSICIAN: YAMILA GIRON PROCEDURE(s): BLDVT - BiLat Lower DVT REASON: Palpitations. ORDER NUMBER(s): [id number], ACCESSION NUMBER(s): [id number] Bilateral lower extremity venous duplex Clinical History: Palpitations. Comparison: None Technique: Duplex Doppler evaluation of the deep venous systems of both lower extremities from the common femoral veins to the popliteal veins including color Doppler and spectral/pulsed waveform analysis was performed. Findings: RIGHT SIDE: The common femoral vein demonstrates appropriate compressibility and waveform variability. There is compressibility/patency of the great saphenous vein at the proximal thigh. The femoral vein demonstrates appropriate compressibility and waveform variability. The deep femoral vein demonstrates appropriate compressibility and waveform variability. The popliteal vein demonstrates appropriate compressibility and waveform variability. There is normal compressibility at the tibioperoneal trunk. LEFT SIDE: The common femoral vein demonstrates appropriate compressibility and waveform variability. There is compressibility/patency of the great saphenous vein at the proximal thigh. The femoral vein demonstrates appropriate compressibility and waveform variability. The deep femoral vein demonstrates appropriate compressibility and waveform variability. The popliteal vein demonstrates appropriate compressibility and waveform variability. There is normal compressibility at the tibioperoneal trunk. Impression: 1. No right or left femoropopliteal venous thrombosis. ATED BY: CINDY AVILA Jr., DO DICTATED DATE/TIME: 02/28/241844 SIGNED BY: CINDY AVILA Jr., SIGNED DATE/TIME: 02/28/241844 CC: [place] [address] Ph: [phone] DIAGNOSTIC IMAGING Diagnostic Imaging Report : [id number] Signed PATIENT: TRISTIAN REYNOSO ACCT: [id number] UNIT: [id number] : 1955 LOC: ER ROOM / BED: / AGE / SEX: 68 / M ADM STATUS: REG ER SERVICE 1219 ORDERING PHYSICIAN: DANILO MEDINA MD PROCEDURE(s): CXRP - CHEST PORTABLE REASON: palpitations ORDER NUMBER(s): [id number], ACCESSION NUMBER(s): [id number] EXAM: XY CHEST PORTABLE Indication: palpitations Technique: Single frontal view of the chest was obtained Comparison: None FINDINGS: Lines and Tubes: None Lungs: No focal consolidation. Pleura: No effusion. No pneumothorax. Cardiomediastinal contours: Unremarkable Bones: No acute osseous abnormality. IMPRESSION: No acute cardiopulmonary disease. ATED BY: VENUS BUITRAGO MD DICTATED DATE/TIME: 02/28/24 124 SIGNED BY: VENUS BUITRAGO MD SIGNED DATE/TIME: 02/28/241245 CC: [place] [address] Ph: [phone] DIAGNOSTIC IMAGING Diagnostic Imaging Report : [id number] Signed PATIENT: TRISTIAN REYNOSO ACCT: [id number] UNIT: [id number] : 1955 LOC: [facility] ROOM / BED: [facility] / A AGE / SEX: 68 / M ADM STATUS: ADM IN SERVICE 1605 ORDERING PHYSICIAN: YAMILA GIRON RESIDENT PROCEDURE(s): ECIDC - ECHO 2D MODE CARDIAC DOP REASON: palpitations, structural heart disease ORDER NUMBER(s): [id number], ACCESSION NUMBER(s): [id number] APPROVED REPORT EXAM: Two-dimensional and M-mode echocardiogram with Doppler and color Doppler. Blood Pressure: 103/46 mmHg INDICATION Palpitations Structural Heart Disease RISK FACTORS Height: 6' 4", Weight: 151 DIMENSIONS LVDd 5.0 (3.8-5.7cm) LA (2D) 4.3 (1.9-4.0cm) Aortic Root 3.8 (2.0- 3.7cm) LVDs 3.9 (2.5-4.0cm) LA (MM) (1.9-4.0cm) Aortic Cusp Exc 1.8 (1.5- 2.0cm) EF (%) 55.0 (55-70%) Rt. Atrium 4.4 (1.9-4.0cm) Asc. Aorta cm IVSd 1.0 (0.7-1.1cm) RV (D) (1.8-2.4cm) PWd 0.9 (0.7-1.1cm) Mitral Valve Mitral Mitral Stenosis E wave 0.80m/s MV Mean GR. mmHg A wave 0.70m/s MV Peak GR. mmHg E/A ratio 1.1 2D MVA cm2 Aortic Valve Aortic Valve Aortic Stenosis V1 1.00m/s AO Mean GR. 3mmHg V2 1.00m/s AO Peak GR. 5mmHg LVOT Diameter 2.1 (1.8-2.4cm) Doppler JOSSIE 3.46cm2 Pulmonic Valve V2 0.70m/s Tricuspid Valve TR Velocity 2.50m/s RVSP 30mmHg Conclusion Technically good study. Sinus rhythm. Left atrial enlargement. Mild dilation of the sinuses of Valsalva. Valves are otherwise normal. EF of 50% with normal RV function. Dopplers unremarkable. Mild TR. No pericardial effusion masses or vegetations. SIGNED BY: DAYTON AGUILAR Sr., MD SIGNED DATE/TIME: 02/29/24 4876 CC: Condition at Discharge: Fair Final Diagnosis/Problems List #Hypotension due to intravascular volume depletion needing IV hydration #Palpitations, likely supraventricular tachycardia # ruled out life threatening arrhythmias and event monitoring to catch the culprit rhythm. #ACS ruled out #Unstable/stable angina to rule out #Chronic marijuana abuse #Essential hypertension #Hypokalemia #Benign prostatic hyperplasia #GERD #Dyslipidemia #Previous history of UTI #Prior history of CAD #Vitamin D deficiency #Back pain #Mild thrombocytopenia, stable. #Transient hypokalemia #Likely costochondritis #Active smoker #PUD prophylaxis: Protonix, home dose to continue. #Low PO intake #DVT/PE ruled out #Starvation ketosis #orthostatic hypotension ruled out. #Mild tricuspid regurgitation #left atrial enlargement #mild Dilatation paraspinal sinuses of Valsalva, clinical significance undetermined #moderate malnutrition. Discharge Disposition: Home Discharge Instruct/Medications Diet: Regular Diet comment: Please hydrate yourself with at least 2 L of oral fluid and continue to have high protein and nutritious diet. Activity: No Restrictions, As Tolerated Follow Up/Referral: Please follow up with the primary care within 1-2 weeks. Discharge clinic follow up. Medications: continue home medications. Discharge Statement: "Patient was advised to return to the ER or call 911 if any headaches, dizziness, shortness of breath, chest pain, abdominal pain, bleeding, fevers, or worsening of medical condition. Patient was counseled about treatment plan, medications, possible side effects, patientverbalized understanding. All questions were answered to the best of my ability. This discharge took greater then 30 minutes in planning, reviewing documentation, counseling the patient, and discussing with other team members." ASSESSMENT ASSESSMENT Assessment #Hyptension due to intravascular volume depletion. #Palpitations, ruled out life threatening arrythmiay and event monitoring to catch the culprit rhythm. #ACS ruled out #Unstable/stable angina to rule out #Chronic marijuana abuse #Essential hypertension #Hypokalemia #Benign prostatic hyperplasia #GERD #Dyslipidemia #Previous history of UTI #Prior history of CAD #Vitamin D deficiency #Back pain #Mild thrombocytopenia 134 #Transient hypokalemia #Likely costochondritis #Active smoker #PUD prophylaxis: Protonix, home dose to continue. #Low PO intake #DVT/PE ruled out #Starvation ketosis #orthostatic hypotension ruled out. YAMILA GIRON RESIDENT Feb 29, 2024 17:42
--- NOTE | 2024-03-01 05:22 | ECG ---
[facility] Test Date: 2024-02-28 Test Time: 09:15:52 Pat Name: TRISTIAN REYNOSO Department: er Room: [facility]0T A Gender: M Oss Architect: talib : 1955 Requested By: WILBUR KAPOOR Order Number: [id number] Reading MD: Edwin Quintanilla Measurements Intervals [place] Rate: 75 P: 35 NE: 116 QRS: 62 QRSD: 113 T: 38 QT: 391 QTc: 437 Interpretive Statements Sinus rhythm Borderline short NE interval RSR' in V1 or V2, probably normal variant Left ventricular hypertrophy Electronically Signed On 03-01-2024 14:12:57 PST by Edwin Quintanilla Please click the below link to view image of tracing.
== END 2024-02-29 19:05 | disposition home or self-care (01) | DRG 201 ==
LOC: EDBD 09:18 → ER 09:18 → TELE 16:04 → TELE-WESTW 19:20
PROVIDERS: ATTEND Internal Medicine
DX: I47.10 Supraventricular tachycardia, unspecified (principal); D69.6 Thrombocytopenia, unspecified; E44.0 Moderate protein-calorie malnutrition; I25.110 Atherosclerotic heart disease of native coronary artery with unstable angina pectoris; E86.9 Volume depletion, unspecified; K21.9 Gastro-esophageal reflux disease without esophagitis; E87.6 Hypokalemia; M94.0 Chondrocostal junction syndrome [Tietze]; E55.9 Vitamin D deficiency, unspecified; E78.5 Hyperlipidemia, unspecified; F17.210 Nicotine dependence, cigarettes, uncomplicated; I10 Essential (primary) hypertension; N40.0 Benign prostatic hyperplasia without lower urinary tract symptoms; F12.10 Cannabis abuse, uncomplicated; I07.1 Rheumatic tricuspid insufficiency; T73.0XXA Starvation, initial encounter; X58.XXXA Exposure to other specified factors, initial encounter
CPT/HCPCS: 36415; 71045; 80048; 80053; 80307; 80320; 81001; 84443; 84484; 85025; 85379; 93005; 93306; 93970; 99291; G0378